=== PATIENT | male | born 1945 | race Caucasian/White ===

== ENCOUNTER 2018-04-17 14:29 | Emergency (ER) | payer MEDICARE, MEDICAID ==
[~2018-04-17] VITALS: Ht 177.8 cm; Wt 109.0 kg
[2018-04-17 16:35] LABS: BASOPHILS % 0.5 % (0.0-2.0); EOSINOPHILS % 0.9 % (0.0-5.0); HEMATOCRIT. 39.9 % (42.0-52.0); HEMOGLOBIN. 13.5 g/dL (14.0-18.0); LYMPHOCYTES % 52.5 % (20.0-50.0); MEAN CORPUSCULAR HEMOGLOBIN 29.6 pg (28.0-32.0); MEAN CORPUSCULAR VOLUME 87.5 fL (80.0-94.0); MEAN PLATELET VOLUME 8.6 fl (7.4-10.4); MONOCYTES % 6.5 % (2.0-8.0); NEUTROPHILS % 39.6 % (40.0-76.0); PLATELET 249 x1000/uL (130-400); RED BLOOD CELL COUNT 4.57 mill/uL (4.7-6.1); RED CELL DISTRIBUTION WIDTH 13.7 % (11.6-14.6)
[2018-04-17 16:40] LABS: CHLORIDE 101 mEq/L (98-107)
[2018-04-17 16:41] LABS: PARTIAL THROMBOPLASTIN TIME 27.1 sec (23.4-31.0); PROTHROMBIN TIME 10.8 sec (9.4-11.6)
[2018-04-17] MEDS ORDERED: MECLIZINE 25MG TABLET PO ONE (21:00)
[2018-04-17] MEDS ORDERED: SODIUM CHLORIDE 0.9% 1,000 ML IV ONE (21:05)
[2018-04-17] MEDS ORDERED: ACETAMINOPHEN 325MG TABLET PO ONE (21:15)
[2018-04-18 00:36] VITALS: BP 140/80
== END 2018-04-18 01:03 | disposition home or self-care (01) ==
LOC: ER 16:13
DX: G43.909 Migraine, unspecified, not intractable, without status migrainosus (principal); R07.9 Chest pain, unspecified; R50.9 Fever, unspecified
CPT/HCPCS: 36415; 70450; 71045; 80053; 84484; 85025; 85610; 85730; 93005; 99285; G0482; J7030; J8597

== ENCOUNTER 2018-07-03 10:39 | Emergency (ER) | payer MEDICARE, MEDICAID ==
[~2018-07-03] VITALS: Ht 172.7 cm; Wt 109.0 kg
[2018-07-03] MEDS ORDERED: KETOROLAC 30MG/ML VIAL IV STA (11:59)
[2018-07-03] MEDS ORDERED: SODIUM CHLORIDE 0.9% 1,000 ML IV ONE (11:59)
[2018-07-03 12:41] LABS: BASOPHILS % 0.5 % (0.0-2.0); EOSINOPHILS % 0.5 % (0.0-5.0); HEMATOCRIT. 42.5 % (42.0-52.0); HEMOGLOBIN. 14.6 g/dL (14.0-18.0); MEAN CORPUSCULAR HEMOGLOBIN 30.2 pg (28.0-32.0); MEAN CORPUSCULAR VOLUME 87.7 fL (80.0-94.0); MEAN PLATELET VOLUME 8.7 fl (7.4-10.4); MONOCYTES % 6.9 % (2.0-8.0); NEUTROPHILS % 50.1 % (40.0-76.0); PLATELET 236 x1000/uL (130-400); RED BLOOD CELL COUNT 4.84 mill/uL (4.7-6.1); RED CELL DISTRIBUTION WIDTH 14.1 % (11.6-14.6)
[2018-07-03 13:05] LABS: CHLORIDE 102 mEq/L (98-107)
[2018-07-03 16:00] VITALS: BP 133/80
== END 2018-07-03 16:52 | disposition home or self-care (01) ==
LOC: ER 10:39
DX: R51 Headache (principal); J32.9 Chronic sinusitis, unspecified
CPT/HCPCS: 36415; 70450; 71045; 80053; 83605; 85025; 93005; 96374; 99285; J1885; J7030

== ENCOUNTER 2019-08-22 10:22 | Emergency (ER) | payer MEDICARE, MEDICAID ==
[~2019-08-22] VITALS: Ht 172.7 cm; Wt 80.0 kg
[2019-08-22] MEDS ORDERED: KETOROLAC 30MG/ML VIAL IV STA (11:16)
[2019-08-22] MEDS ORDERED: METOCLOPRAMIDE HCL 10MG/2ML VIAL IV ONE (11:30)
[2019-08-22 12:38] VITALS: BP 119/72
== END 2019-08-22 12:39 | disposition home or self-care (01) ==
LOC: ER 10:22
DX: R51 Headache (principal); Z90.49 Acquired absence of other specified parts of digestive tract
CPT/HCPCS: 96374; 96375; 99283; J1885; J2765

== ENCOUNTER → 2022-03-23 | Outpatient (CLI) | payer MEDICARE, OTHER | END | disposition home or self-care (01) | LOC: MRI 08:49 | PROVIDERS: ATTEND Neurological Surgery | DX: M48.07 Spinal stenosis, lumbosacral region (principal); M51.37 Other intervertebral disc degeneration, lumbosacral region; M51.27 Other intervertebral disc displacement, lumbosacral region; M47.817 Spondylosis without myelopathy or radiculopathy, lumbosacral region; G50.1 Atypical facial pain | CPT/HCPCS: 70551; 72148 ==

== ENCOUNTER 2022-05-17 16:52 | Emergency (ER) | payer MEDICARE, OTHER ==
[~2022-05-17] VITALS: Ht 177.8 cm; Wt 109.0 kg
[2022-05-17 17:01] VITALS: BP 120/69
[2022-05-17] MEDS ORDERED: ACET-2708 MT (19:56)
[2022-05-17] MEDS ORDERED: ACETAMINOPHEN 325MG TABLET PO ONE (20:00)
== END 2022-05-17 20:20 | disposition home or self-care (01) ==
LOC: ER 16:52
DX: R51.9 Headache, unspecified (principal); M19.90 Unspecified osteoarthritis, unspecified site; Z98.890 Other specified postprocedural states
CPT/HCPCS: 99282

== ENCOUNTER → 2023-01-02 | Outpatient (CLI) | payer MEDICARE, OTHER ==
[~2023-01-02] MED LIST: ACET-2708 MT
== END | disposition home or self-care (01) ==
LOC: MRI 11:53
PROVIDERS: ATTEND Neurological Surgery
DX: M51.36 Other intervertebral disc degeneration, lumbar region (principal); M54.51 Vertebrogenic low back pain; M41.56 Other secondary scoliosis, lumbar region; M51.9 Unspecified thoracic, thoracolumbar and lumbosacral intervertebral disc disorder; M25.70 Osteophyte, unspecified joint; M48.061 Spinal stenosis, lumbar region without neurogenic claudication; M41.86 Other forms of scoliosis, lumbar region; M47.816 Spondylosis without myelopathy or radiculopathy, lumbar region
CPT/HCPCS: 72148

== ENCOUNTER 2025-08-28 14:11 | Emergency (ER) | payer MEDICARE, OTHER ==
[~2025-08-28] VITALS: Ht 175.3 cm; Wt 75.0 kg
[~2025-08-28 14:11] MED LIST changes: +AMLO10TA80 PO; +DOCU-138 MT; +PANT40TA51 PO; +TAMS-54 PO
[2025-08-28 14:17] VITALS: TEMP 37.1; O2SAT 99
[2025-08-28 16:31] LABS: BASOPHILS % 1.0 % (0.0-2.0); EOSINOPHILS % 1.2 % (0.0-5.0); HEMATOCRIT. 37.6 % (42.0-52.0); HEMOGLOBIN. 12.6 g/dL (14.0-18.0); LYMPHOCYTES % 47.6 % (20.0-50.0); MEAN PLATELET VOLUME 9.1 fl (7.4-10.4); MONOCYTES % 8.7 % (2.0-8.0); NEUTROPHILS % 41.5 % (40.0-76.0); PLATELET 237 x1000/uL (130-400); RED BLOOD CELL COUNT 4.23 mill/uL (4.7-6.1); RED CELL DISTRIBUTION WIDTH 14.0 % (11.6-14.6)
[2025-08-28 16:45] LABS: CREATININE 1.0 mg/dL (0.6-1.3); TROPONIN I HIGH SENSITIVITY 42 ng/L (3.0-53)
[2025-08-28 16:46] LABS: UREA NITROGEN BLOOD 17 mg/dL (9-23)
[2025-08-28 16:47] LABS: ASPARTATE AMINOTRANSFERASE 21 IU/L (<34)
[2025-08-28 16:48] LABS: BILIRUBIN DIRECT 0.1 mg/dL (<=3.0); BILIRUBIN TOTAL 0.4 mg/dL (0.1-1.0); PROTEIN TOTAL 6.8 g/dL (6.0-8.3)
[2025-08-28 18:42] VITALS: O2SAT 97
[2025-08-28 18:43] VITALS: BP 107/73; PULSE 80; RESP 18; TEMP 98.8
[2025-08-28] MEDS ORDERED: IOHEXOL-350 100 ML BOTTLE ONE (23:13)
== END 2025-08-28 19:12 | disposition left against medical advice (07) ==
LOC: ER 14:25 → EDBEDREQ 17:45 → EDBEDREQTM 17:45 → ENRESERV 18:06 → CANBEDREQ 19:07 → ER 19:12
DX: R06.02 Shortness of breath (principal); I10 Essential (primary) hypertension; E78.00 Pure hypercholesterolemia, unspecified; E11.9 Type 2 diabetes mellitus without complications; I25.2 Old myocardial infarction; Z86.73 Personal history of transient ischemic attack (TIA), and cerebral infarction without residual deficits; Z79.899 Other long term (current) drug therapy
CPT/HCPCS: 99285; 71275; 71045; 80076; 80048; 83880; 83605; 85025; 85379; 84484; 36415; 70450; 93005; Q9967